=== PATIENT | female | born 1990 | race African-American/Black ===

== ENCOUNTER 2021-02-11 13:41 | Emergency (ER) | payer MEDICAID ==
[~2021-02-11] VITALS: Ht 167.6 cm; Wt 77.0 kg
[2021-02-11] MEDS ORDERED: ONDANSETRON HCL 4MG/2ML INJ IV STA (14:20)
[2021-02-11] MEDS ORDERED: MORPHINE SULFATE 4 MG/ML CPJ (NOT FOR IM USE) IV STA (14:20)
[2021-02-11] MEDS ORDERED: SODIUM CHLORIDE 0.9% 1,000 ML IV ONE (14:30)
[2021-02-11 14:52] LABS: BASOPHILS % 0.6 % (0.0-2.0); EOSINOPHILS % 2.7 % (0.0-5.0); HEMATOCRIT. 37.9 % (36.0-48.0); LYMPHOCYTES % 22.9 % (20.0-50.0); MEAN CORPUSCULAR HEMOGLOBIN 31.8 pg (28.0-32.0); MEAN CORPUSCULAR VOLUME 92.3 fL (81.0-99.0); MEAN PLATELET VOLUME 8.4 fl (7.4-10.4); MONOCYTES % 6.1 % (2.0-8.0); NEUTROPHILS % 67.7 % (40.0-76.0); PLATELET 305 x1000/uL (130-400); RED CELL DISTRIBUTION WIDTH 13.4 % (11.6-14.6)
[2021-02-11 14:57] LABS: CHLORIDE 108 mEq/L (98-107)
[2021-02-11 15:00] LABS: INR 1.1; PROTHROMBIN TIME 11.4 sec (9.6-11.0)
[2021-02-11 15:01] LABS: CLARITY URINE CLEAR (CLEAR); COLOR URINE YELLOW (YELLOW); KETONES URINE NEGATIVE (NEGATIVE); LEUKOCYTE ESTERASE URINE NEGATIVE (NEGATIVE); NITRITE URINE NEGATIVE (NEGATIVE); OCCULT BLOOD URINE 1+ (NEGATIVE); PH URINE 8.5 (4.5-8.0); PROTEIN URINE TRACE (NEGATIVE); SPECIFIC GRAVITY URINE 1.021 (1.005-1.030)
[2021-02-11] MEDS ORDERED: KETOROLAC 15MG/ML VIAL IV ONE (17:30)
[2021-02-11] MEDS ORDERED: IBUP-2029 MT (17:57)
[2021-02-11] MEDS ORDERED: HYDR-4346 MT ×2 (17:59→18:04)
[2021-02-11] MEDS ORDERED: TAMS-11 PO (17:59)
[2021-02-11 18:15] VITALS: BP 128/88
== END 2021-02-11 19:43 | disposition home or self-care (01) ==
LOC: ER 13:41
DX: N20.1 Calculus of ureter (principal); Z86.73 Personal history of transient ischemic attack (TIA), and cerebral infarction without residual deficits; E86.0 Dehydration
CPT/HCPCS: 36415; 74176; 76830; 76856; 80053; 81003; 81025; 83690; 85025; 85610; 93005; 96361; 96374; 96375; 99285; J1885; J2270; J2405; J7030

== ENCOUNTER 2021-02-20 11:45 | Emergency (ER) | payer MEDICAID ==
[~2021-02-20] VITALS: Ht 167.6 cm; Wt 82.0 kg
[~2021-02-20 11:45] MED LIST: HYDR-4346 MT; IBUP-2029 MT; TAMS-11 PO
[2021-02-20] MEDS ORDERED: ONDANSETRON 4MG ODT PO STA (12:23)
[2021-02-20] MEDS ORDERED: KETOROLAC 60MG/2ML VIAL IM STA (12:23)
[2021-02-20 12:47] VITALS: BP 134/83
[2021-02-20 13:18] LABS: CLARITY URINE CLOUDY (CLEAR); COLOR URINE YELLOW (YELLOW); KETONES URINE TRACE (NEGATIVE); LEUKOCYTE ESTERASE URINE 1+ (NEGATIVE); NITRITE URINE NEGATIVE (NEGATIVE); OCCULT BLOOD URINE NEGATIVE (NEGATIVE); PH URINE 6.5 (4.5-8.0); PROTEIN URINE NEGATIVE (NEGATIVE); SPECIFIC GRAVITY URINE 1.027 (1.005-1.030)
[2021-02-20] MEDS ORDERED: CIPR500T5 PO (14:19)
[2021-02-20] MEDS ORDERED: ONDA4TAB11 PO (14:19)
== END 2021-02-20 14:36 | disposition home or self-care (01) ==
LOC: ER 11:45
DX: N39.0 Urinary tract infection, site not specified (principal); N20.0 Calculus of kidney
CPT/HCPCS: 81003; 81025; 96372; 99283; J1885; Q0162

== ENCOUNTER 2021-08-30 14:06 | Emergency (ER) | payer MEDICAID ==
[~2021-08-30] VITALS: Ht 165.1 cm; Wt 77.0 kg
[~2021-08-30 14:06] MED LIST changes: +CIPR500T5 PO; +ONDA4TAB11 PO
[2021-08-30 14:12] VITALS: BP 130/86
[2021-08-30] MEDS ORDERED: ACETAMINOPHEN 325MG TABLET PO ONE (19:00)
[2021-08-30] MEDS ORDERED: DIPHENHYDRAMINE 25MG CAPSULE PO ONE (19:00)
[2021-08-30] MEDS ORDERED: METOCLOPRAMIDE HCL 5MG TABLET PO ONE (19:00)
[2021-08-31] MEDS ORDERED: HYDR50CA5 MT (20:21)
== END 2021-08-30 20:36 | disposition home or self-care (01) ==
LOC: ER 14:06
DX: R51.9 Headache, unspecified (principal)
CPT/HCPCS: 70450; 81025; 99284; J8597; Q0163

== ENCOUNTER 2021-08-31 15:54 | Emergency (ER) | payer MEDICAID ==
[~2021-08-31] VITALS: Ht 167.6 cm; Wt 88.0 kg
[2021-08-31 16:01] VITALS: BP 140/88
[2021-08-31] MEDS ORDERED: KETOROLAC 15MG/ML VIAL IV ONE (19:15)
[2021-08-31] MEDS ORDERED: SODIUM CHLORIDE 0.9% 1,000 ML IV ONE (19:15)
[2021-08-31 19:39] LABS: CHLORIDE 108 mEq/L (98-107)
[2021-08-31] MEDS ORDERED: HYDR50CA5 MT (20:21)
[2021-08-31] MEDS ORDERED: LORAZEPAM 1MG TABLET PO ONE (20:30)
== END 2021-08-31 20:54 | disposition home or self-care (01) ==
LOC: ER 15:54
DX: R51.9 Headache, unspecified (principal); F43.0 Acute stress reaction; Z79.899 Other long term (current) drug therapy
CPT/HCPCS: 36415; 80048; 81025; 96361; 96374; 99283; J1885; J7030

== ENCOUNTER 2021-09-19 08:05 | Emergency (ER) | payer MEDICAID ==
[~2021-09-19] VITALS: Ht 167.6 cm; Wt 86.0 kg
[~2021-09-19 08:05] MED LIST changes: +HYDR50CA5 MT
[2021-09-19] MEDS ORDERED: MAGNESIUM/ALUMINUM HYDROXIDE/SIMETHICONE 30ML UDC PO STA (08:25)
[2021-09-19] MEDS ORDERED: DICYCLOMINE 10 MG/5 ML ORAL SYR PO STA (08:25)
[2021-09-19 09:06] LABS: BASOPHILS % 0.8 % (0.0-2.0); EOSINOPHILS % 3.2 % (0.0-5.0); HEMATOCRIT. 37.6 % (36.0-48.0); HEMOGLOBIN. 12.8 g/dL (12.0-16.0); LYMPHOCYTES % 22.8 % (20.0-50.0); MEAN CORPUSCULAR HEMOGLOBIN 30.9 pg (28.0-32.0); MEAN CORPUSCULAR VOLUME 90.7 fL (81.0-99.0); MEAN PLATELET VOLUME 9.3 fl (7.4-10.4); MONOCYTES % 6.9 % (2.0-8.0); NEUTROPHILS % 66.3 % (40.0-76.0); PLATELET 254 x1000/uL (130-400); RED BLOOD CELL COUNT 4.14 mill/uL (4.2-5.4); RED CELL DISTRIBUTION WIDTH 13.1 % (11.6-14.6)
[2021-09-19 09:07] LABS: CHLORIDE 107 mEq/L (98-107)
[2021-09-19 09:08] LABS: CLARITY URINE CLOUDY (CLEAR); COLOR URINE YELLOW (YELLOW); KETONES URINE NEGATIVE (NEGATIVE); LEUKOCYTE ESTERASE URINE 3+ (NEGATIVE); NITRITE URINE NEGATIVE (NEGATIVE); OCCULT BLOOD URINE NEGATIVE (NEGATIVE); PH URINE 6.5 (4.5-8.0); PROTEIN URINE NEGATIVE (NEGATIVE); SPECIFIC GRAVITY URINE 1.006 (1.005-1.030); UROBILINOGEN URINE 0.2 E.U./dL (0.2-1.0)
[2021-09-19] MEDS ORDERED: CEPH500C2 MT (10:41)
[2021-09-19 10:59] VITALS: BP 128/69
== END 2021-09-19 11:34 | disposition home or self-care (01) ==
LOC: ER 08:05
DX: R07.89 Other chest pain (principal); N30.90 Cystitis, unspecified without hematuria
CPT/HCPCS: 36415; 71045; 80053; 81003; 81025; 85025; 99284

== ENCOUNTER 2022-02-11 08:45 | Emergency (ER) | payer MEDICAID ==
[~2022-02-11] VITALS: Ht 167.6 cm; Wt 86.0 kg
[~2022-02-11 08:45] MED LIST changes: +CEPH500C2 MT
[2022-02-11 09:13] VITALS: BP 119/84
== END 2022-02-11 12:12 | disposition left against medical advice (07) ==
LOC: ER 08:45
DX: Z53.21 Procedure and treatment not carried out due to patient leaving prior to being seen by health care provider (principal)